=== PATIENT | female | born 1940 | race Caucasian/White ===

== ENCOUNTER 2016-12-08 23:35 | Emergency (ER) | payer MEDICARE, OTHER ==
[~2016-12-08] VITALS: Ht 177.8 cm; Wt 63.6 kg
[~2016-12-08 23:35] MED LIST: AVELOX400 MG OR; CYMBALTA60 MG PO; EFFEXOR75 MG OR; LORTAB5 PO; LYRICA75 MG OR; PANCOF EXP OR; PRILOSEC20 MG OR; PROPANOLOL OR; PROVIGIL100 MG OR; ULTRAM50 M1 PO; VITORIN; VYTORIN 10/401 TAB OR
[2016-12-09] LABS: HEMATOCRIT 35.1 % (37.0-47.0); HEMOGLOBIN 11.8 g/dl (12.0-16.0); IMMATURE GRANULOCYTES 1.1 % (0.0-1.0); MEAN CELL VOLUME 89.8 fL CALC (80.0-100.0); MEAN CORPUSCULAR HGB 30.2 pG CALC (26.0-32.0); MEAN CORPUSCULAR HGB CONC 33.6 g/L CALC (32.0-36.0); NEUT# 3.85 thou/uL (2.00-7.15); RED BLOOD COUNT 3.91 mill/uL (4.20-5.60); RED CELL DISTRI WIDTH 14.3 % (11.5-15.5)
[2016-12-09] MEDS ORDERED: BRILINTA90 MG PO
--- NOTE | 2016-12-09 | NUR ---
PATIENT RECEIVED INTUBATED WITH TUBE # 7 AT 22@ THE LIPS. PLACED ON VENTILATOR WITH AC MODE 16, 500, 100% + 5 PEEP. WILL CONTINUE TO MONITOR. ABG RESULT AVAILABLE.
[2016-12-09] MEDS ORDERED: CYANOCOBALAM1000 MC1 IM (00:01)
[2016-12-09] MEDS ORDERED: TOPAMAX50 MG PO (00:01)
[2016-12-09] MEDS ORDERED: MONTELUKAST SOD10 MG PO (00:01)
[2016-12-09] MEDS ORDERED: PROAIR HFA IN (00:02)
[2016-12-09] MEDS ORDERED: METO100T50 PO (00:02)
[2016-12-09] MEDS ORDERED: FIORICET 50-3001 CAP PO (00:03)
[2016-12-09 00:46] LABS: ALBUMIN 3.5 g/dL (3.2-5.0); ALKALINE PHOSPHATASE 68 u/l (38-126); ANION GAP 17 (6-22 (CALC)); BILIRUBIN, TOTAL 0.4 mg/dL (0.0-1.4); BUN 13 mg/dL (8-23); BUN/CREATININE RATIO 10 (12-20 (CALC)); CALCIUM 8.1 mg/dL (8.4-10.2); CARBON DIOXIDE 16 mmol/l (22-30); CHLORIDE 104 mmol/l (95-108); CREATININE 1.3 mg/dL (0.5-1.0); GFR 40 ML/MIN (>=60 (CALC)); GFR FOR AFR.AMER. 48 ML/MIN (>=60 (CALC)); GLUCOSE 110 mg/dL (82-115); LIPASE 117 u/l (23-300); POTASSIUM 3.8 mmol/l (3.5-5.1); SGOT/AST 29 u/l (9-36); SGPT/ALT 32 u/l (11-66); SODIUM 134 mmol/l (137-146); TOTAL PROTEIN 6.3 g/dL (6.3-8.2)
[2016-12-09 00:55] LABS: URINE BLOOD DIPSTICK NEGATIVE (NEGATIVE); URINE CLARITY TURBID; URINE COLOR YELLOW; URINE GLUCOSE - DIPSTICK NEGATIVE (NEGATIVE); URINE KETONE TRACE mg/dL (NEGATIVE); URINE LEUK ESTERASE NEGATIVE (NEGATIVE); URINE NITRITE - DIPSTICK NEGATIVE (Negative); URINE PROTEIN - DIPSTICK 30 mg/dL (NEG-TRACE); URINE SPECIFIC GRAVITY >=1.030; URINE UROBILINOGEN - DIPSTICK 0.2 E.U./dL (0.2)
[2016-12-09 00:57] LABS: MYOGLOBIN 93 ng/mL (0 - 62)
[2016-12-09 00:59] LABS: URINE BILIRUBIN - DIPSTICK SMALL (NEGATIVE)
[2016-12-09 01:02] LABS: COCAINE NEGATIVE (NEGATIVE); TETRAHYDROCANNABIONOL NEGATIVE (NEGATIVE)
[2016-12-09 01:03] LABS: BARBITURATES POSITIVE (NEGATIVE); METHADONE NEGATIVE (NEGATIVE); OXCYCODONE NEGATIVE (NEGATIVE); TRICYLIC ANTIDEPRESSANTS NEGATIVE (NEGATIVE)
[2016-12-09 01:08] LABS: URINE BACTERIA FEW hpf; URINE MUCUS MODERATE hpf (NONE-FEW); URINE RBC 0-2 RBC/hpf (0-5); URINE SQUAMOUS EPITHELIAL CELL MANY EPI/hpf (0-FEW)
[2016-12-09 01:09] LABS: URINE FINE GRAN CAST FEW lpf; URINE HYALINE CAST FEW lpf (NONE-RARE)
[2016-12-09 04:05] VITALS: BP 100/51
--- NOTE | 2016-12-11 13:17 | NUR ---
CALLED BLOOD CULTURE GROWING STAPH HOMINIS IN 1 OF 2 SETS TO VAMSHI CULLEN AT [facility]. FAXED BOTH CULTURES TO [phone].
== END 2016-12-09 04:05 | disposition short-term general hospital (02) ==
LOC: ED 23:35
PROVIDERS: Emergency Medicine
PROC: 5A1935Z Respiratory Ventilation, Less than 24 Consecutive Hours (ICD-10-PCS; principal; 2016-12-08)
PROC: 0T9B70Z Drainage of Bladder with Drainage Device, Via Natural or Artificial Opening (ICD-10-PCS; 2016-12-08)
DX: J96.00 Acute respiratory failure, unspecified whether with hypoxia or hypercapnia (principal); J69.0 Pneumonitis due to inhalation of food and vomit; E87.2 Acidosis; I95.9 Hypotension, unspecified; M32.9 Systemic lupus erythematosus, unspecified; F10.10 Alcohol abuse, uncomplicated; R68.0 Hypothermia, not associated with low environmental temperature; R41.82 Altered mental status, unspecified; F17.210 Nicotine dependence, cigarettes, uncomplicated; I25.2 Old myocardial infarction; Z95.5 Presence of coronary angioplasty implant and graft

== ENCOUNTER 2020-09-27 07:44 | Emergency (ER) | payer MEDICARE, OTHER ==
[~2020-09-27] VITALS: Ht 177.8 cm; Wt 75.0 kg
[~2020-09-27 07:44] MED LIST changes: +BRILINTA90 MG PO; +CYANOCOBALAM1000 MC1 IM; +FIORICET 50-3001 CAP PO; +METO100T50 PO; +MONTELUKAST SOD10 MG PO; +PROAIR HFA IN; +TOPAMAX50 MG PO
[2020-09-27] MEDS ORDERED: DONEPEZIL10 MG PO (08:25)
[2020-09-27] MEDS ORDERED: ASPIRIN81 MG PO (08:25)
[2020-09-27] MEDS ORDERED: ESCITALOPRAM OX10 MG PO (08:26)
[2020-09-27] MEDS ORDERED: LIPITOR20 M1 PO (08:26)
[2020-09-27] MEDS ORDERED: OXYBUTYNIN CHLO10 MG PO (08:27)
[2020-09-27] MEDS ORDERED: MEMANTINE HYDROC5 MG PO (08:28)
[2020-09-27] MEDS ORDERED: BUPROPION150 M4 PO (08:29)
[2020-09-27] MEDS ORDERED: FERRAPLUS 90 PO (08:30)
[2020-09-27] MEDS ORDERED: D3 ADULT1000 UNIT PO (08:31)
[2020-09-27] MEDS ORDERED: HYDROCO/APAP1 TA9 PO (09:46)
[2020-09-27] MEDS ORDERED: KEFLEX500 MG PO (09:46)
[2020-09-27 10:15] VITALS: BP 129/66
== END 2020-09-27 10:15 | disposition home or self-care (01) ==
LOC: ED 07:44
DX: S80.12XA Contusion of left lower leg, initial encounter (principal); L03.116 Cellulitis of left lower limb; S73.102A Unspecified sprain of left hip, initial encounter; F32.9 Major depressive disorder, single episode, unspecified; I25.2 Old myocardial infarction; F17.210 Nicotine dependence, cigarettes, uncomplicated; W22.8XXA Striking against or struck by other objects, initial encounter

== ENCOUNTER 2020-10-28 09:06 | Emergency (ER) | payer MEDICARE, OTHER ==
[~2020-10-28] VITALS: Ht 177.8 cm; Wt 75.0 kg
[~2020-10-28 09:06] MED LIST changes: +ASPIRIN81 MG PO; +BUPROPION150 M4 PO; +D3 ADULT1000 UNIT PO; +DONEPEZIL10 MG PO; +ESCITALOPRAM OX10 MG PO; +FERRAPLUS 90 PO; +HYDROCO/APAP1 TA9 PO; +KEFLEX500 MG PO; +LIPITOR20 M1 PO; +MEMANTINE HYDROC5 MG PO; +OXYBUTYNIN CHLO10 MG PO
[2020-10-28 09:16] VITALS: BP 132/67
[2020-10-28] MEDS ORDERED: KEFLEX500 M1 PO (11:30)
== END 2020-10-28 12:20 | disposition home or self-care (01) ==
LOC: ED 09:06
PROC: 0HQFXZZ Repair Right Hand Skin, External Approach (ICD-10-PCS; principal; 2020-10-28)
DX: S61.212A Laceration without foreign body of right middle finger without damage to nail, initial encounter (principal); F32.9 Major depressive disorder, single episode, unspecified; I25.2 Old myocardial infarction; F17.210 Nicotine dependence, cigarettes, uncomplicated; W20.8XXA Other cause of strike by thrown, projected or falling object, initial encounter; Y93.89 Activity, other specified; Y92.007 Garden or yard of unspecified non-institutional (private) residence as the place of occurrence of the external cause

== ENCOUNTER 2020-10-30 11:34 | Emergency (ER) | payer MEDICARE, OTHER ==
[~2020-10-30] VITALS: Ht 177.8 cm; Wt 71.0 kg
[~2020-10-30 11:34] MED LIST changes: +KEFLEX500 M1 PO
[2020-10-30 12:42] VITALS: BP 131/84
== END 2020-10-30 12:42 | disposition home or self-care (01) ==
LOC: ED 11:34
DX: S61.212D Laceration without foreign body of right middle finger without damage to nail, subsequent encounter (principal); F17.210 Nicotine dependence, cigarettes, uncomplicated; X58.XXXD Exposure to other specified factors, subsequent encounter

== ENCOUNTER 2021-08-06 22:58 | Observation (INO) | payer MEDICARE, OTHER ==
[~2021-08-06] VITALS: Ht 182.9 cm; Wt 67.5 kg
--- NOTE | 2021-08-06 23:00 | NUR ---
PT ARRIVED VIA EMS, PT PLACED IN ROOM 9 FOR TRIAGE AND WORK UP
[2021-08-06 23:35] LABS: HEMATOCRIT 38.8 % (37.0-47.0); HEMOGLOBIN 12.8 g/dl (12.0-16.0); IMMATURE GRANULOCYTES 0.4 % (0.0-5.0); MEAN CELL VOLUME 92.6 fL CALC (80.0-100.0); MEAN CORPUSCULAR HGB 30.5 pG CALC (26.0-32.0); NEUT# 3.8 thou/uL (2.00-7.15); RED BLOOD COUNT 4.19 mill/uL (4.20-5.60); RED CELL DISTRI WIDTH 14.3 % (11.5-15.5)
[2021-08-06] MEDS ORDERED: PEPCID20 MG PO (23:52)
[2021-08-06] MEDS ORDERED: LIPITOR40 M1 PO (23:53)
[2021-08-06] MEDS ORDERED: ARICEPT10 MG PO (23:54)
[2021-08-06] MEDS ORDERED: DITROPAN XL5 MG PO (23:54)
[2021-08-06] MEDS ORDERED: BUSPIRONE5 MG PO (23:55)
[2021-08-06] MEDS ORDERED: NAMENDA1 TAB PO (23:55)
[2021-08-06] MEDS ORDERED: WELLBUTRIN150 M2 PO (23:56)
[2021-08-06] MEDS ORDERED: GABAPENTIN300 M2 PO (23:57)
[2021-08-07 00:12] LABS: ALBUMIN 3.8 g/dL (3.2-5.0); ANION GAP 9 (6-22 (CALC)); BILIRUBIN, TOTAL 0.5 mg/dL (0.0-1.4); BUN 23 mg/dL (8-23); BUN/CREATININE RATIO 16 (12-20 (CALC)); CARBON DIOXIDE 30 mmol/l (22-30); CHLORIDE 103 mmol/l (95-108); CREATININE 1.4 mg/dL (0.5-1.0); GFR 36 ML/MIN (>=60 (CALC)); GFR FOR AFR.AMER. 43 ML/MIN (>=60 (CALC)); POTASSIUM 4.2 mmol/l (3.5-5.1); SGOT/AST 29 u/l (9-36); SODIUM 138 mmol/l (137-146); TOTAL PROTEIN 6.9 g/dL (6.3-8.2)
[2021-08-07 00:13] LABS: ALKALINE PHOSPHATASE 101 u/l (38-126)
[2021-08-07 00:24] LABS: MYOGLOBIN 109 ng/mL (0 - 62)
--- NOTE | 2021-08-07 01:57 | NUR ---
REPORT RECEIVED FROM Vivek SANCHEZ RN
[2021-08-07 02:15] VITALS: BP 119/61
--- NOTE | 2021-08-07 02:17 | NUR ---
PT TRANSPORTED TO [facility] VIA WHEELCHAIR ALL BELONGINGS SENT WITH PATIENT
--- NOTE | 2021-08-07 02:20 | NUR ---
PT ARRIVED VIA WHEELCHAIR ACCOMPANIED BY Eriberto LOCKWOOD LPN.
[2021-08-07 04:00] VITALS: BP 97/54
--- NOTE | 2021-08-07 05:08 | NUR ---
PT STATES SHE WOULD ONLY LIKE TO SLEEP, NO OTHER NEEDS VOICED OTHERWISE, CALL LIGHT AND BEDSIDE TABLE WITHIN REACH.
--- NOTE | 2021-08-07 05:09 | NUR ---
ALERT AND ORITNETED X3. CLEAR LUNG SOUNDS, NORMAL HEART SOUNDS. SR ON TELEMETRY. SKIN DRY AND INTACT. DENIES ANY CURRENT CHEST PAIN. STATES SHE ONLY WANTS TO SLEEP.LAST REPORTED BOWEL MOVEMENT 08/06/21, ACTIVE BOWEL SOUNDS.#20 IN THE RAC INF PER EMAR.PLAN OF CARE REVIEWED, PT VERBALISES UNDERSTANDING. CALL LIGHT AND BEDSIDE TABLE WITHIN REACH.
[2021-08-07 07:30] VITALS: BP 102/63
--- NOTE | 2021-08-07 07:30 | NUR ---
PATIENT LAYING IN BED AT THIS TIME ALERT AND ORIENTED PATIENT DEINES ANY PIAN AND STATED "I HAVE NOT HAD ANY CHEST PAIN SINCE I GOT HERE". ONLINE COMMUNICATIONS SPECIALIST DONE SEE INTERVENTIONS. LUNG BRADLEY ARE CLEAR TELE MONITOR IN PLACE AND BEING MONITORED BY ED. SIDERAILS ARE UP CALL LIGHT WITH IN REACH. WILL CONTINUE TO MONITOR.
[2021-08-07 08:58] LABS: CHOLESTEROL HDL RATIO 2.9 (<4.4 (CALC))
--- NOTE | 2021-08-07 10:00 | NUR ---
DR. ALDANA AND RAMESH CHAUDHARI ROUNDING AT THIS TIME.
[2021-08-07 11:03] VITALS: BP 102/63
--- NOTE | 2021-08-07 11:30 | NUR ---
PATIENT RESTING IN BED AT THIS TIME VISITOR AT BEDSIDE. PATIENT DENIES ANY PAIN AND OR CHEST PAIN. SIDERAILS ARE UP X 2 CALL LIGHT WITHIN REACH . TELE MONITOR ON AND BEING MONITORED BY ED.
[2021-08-07] MEDS ORDERED: ASPIRIN 81 LOW81 MG PO (15:41)
--- NOTE | 2021-08-07 15:52 | NUR ---
Discharge instructions given. Patient verbalizes understanding of same. Discharged in stable condition via Wheelchair to Home with family. All belongings sent with pt.
== END 2021-08-07 15:55 | disposition home or self-care (01) ==
LOC: ED 22:58 → ED-I 08-07 00:42 → ED 08-07 00:52 → MS2 08-07 00:53
PROVIDERS: Emergency Medicine; Nurse Practitioner; ADMIT Hospitalist; ATTEND Hospitalist
DX: R07.9 Chest pain, unspecified (principal); I95.9 Hypotension, unspecified; I12.9 Hypertensive chronic kidney disease with stage 1 through stage 4 chronic kidney disease, or unspecified chronic kidney disease; N18.30 Chronic kidney disease, stage 3 unspecified; F41.9 Anxiety disorder, unspecified; F32.A Depression, unspecified; F03.90 Unspecified dementia, unspecified severity, without behavioral disturbance, psychotic disturbance, mood disturbance, and anxiety; M79.7 Fibromyalgia; G62.9 Polyneuropathy, unspecified; I25.2 Old myocardial infarction; F17.200 Nicotine dependence, unspecified, uncomplicated; T39.016A Underdosing of aspirin, initial encounter; Z91.128 Patient's intentional underdosing of medication regimen for other reason; Z95.5 Presence of coronary angioplasty implant and graft; Z20.822 Contact with and (suspected) exposure to COVID-19

== ENCOUNTER 2022-03-07 16:45 | Emergency (ER) | payer MEDICARE, OTHER ==
[2022-03-07] VITALS (10 sets, daily range): BP systolic 98–144; BP diastolic 53–73
[~2022-03-07] VITALS: Ht 182.9 cm; Wt 68.3 kg
[~2022-03-07 16:45] MED LIST changes: +ARICEPT10 MG PO; +ASPIRIN 81 LOW81 MG PO; +BUSPIRONE5 MG PO; +DITROPAN XL5 MG PO; +GABAPENTIN300 M2 PO; +LIPITOR40 M1 PO; +NAMENDA1 TAB PO; +PEPCID20 MG PO; +WELLBUTRIN150 M2 PO
[2022-03-07] MEDS ORDERED: PREDNISONE20 MG PO (19:05)
[2022-03-07] MEDS ORDERED: PERCOCET 5/321 COMBO PO (19:05)
[2022-03-08] MEDS ORDERED: PERCOCET 5/321 COMBO PO (12:39)
== END 2022-03-07 19:16 | disposition home or self-care (01) ==
LOC: ED 16:45
DX: M54.42 Lumbago with sciatica, left side (principal); I25.10 Atherosclerotic heart disease of native coronary artery without angina pectoris; F41.9 Anxiety disorder, unspecified; F32.A Depression, unspecified; G62.9 Polyneuropathy, unspecified; F17.210 Nicotine dependence, cigarettes, uncomplicated

== ENCOUNTER 2023-04-15 07:08 | Day surgery (SDC) | payer MEDICARE, OTHER ==
[~2023-04-15] VITALS: Ht 177.8 cm; Wt 68.9 kg
[~2023-04-15 07:08] MED LIST changes: +LYRICA75 MG PO; +PERCOCET 5/321 COMBO PO; +PREDNISONE20 MG PO; +PROTONIX40 M2 PO; +ROPINIROLE5 MG PO; +TOPROL XL25 M1 PO
[2023-04-15 09:26] VITALS: BP 116/62
== END 2023-04-15 09:52 | disposition home or self-care (01) ==
LOC: ORM 07:08 → ENDO 07:08 → ORM 08:40 → ENDO 09:52 → ORM 12:10
PROVIDERS: ATTEND Internal Medicine Gastroenterology
PROC: 0DJD8ZZ Inspection of Lower Intestinal Tract, Via Natural or Artificial Opening Endoscopic (ICD-10-PCS; principal; 2023-04-15)
PROC: 0DB98ZX Excision of Duodenum, Via Natural or Artificial Opening Endoscopic, Diagnostic (ICD-10-PCS; 2023-04-15)
PROC: 0DB78ZX Excision of Stomach, Pylorus, Via Natural or Artificial Opening Endoscopic, Diagnostic (ICD-10-PCS; 2023-04-15)
PROC: 0DB58ZX Excision of Esophagus, Via Natural or Artificial Opening Endoscopic, Diagnostic (ICD-10-PCS; 2023-04-15)
DX: D50.9 Iron deficiency anemia, unspecified (principal); K21.9 Gastro-esophageal reflux disease without esophagitis; K44.9 Diaphragmatic hernia without obstruction or gangrene; K22.89 Other specified disease of esophagus; K29.70 Gastritis, unspecified, without bleeding; K64.8 Other hemorrhoids; K31.7 Polyp of stomach and duodenum; I12.9 Hypertensive chronic kidney disease with stage 1 through stage 4 chronic kidney disease, or unspecified chronic kidney disease; N18.2 Chronic kidney disease, stage 2 (mild); J44.9 Chronic obstructive pulmonary disease, unspecified; M32.9 Systemic lupus erythematosus, unspecified; E78.5 Hyperlipidemia, unspecified; F32.A Depression, unspecified; Z79.899 Other long term (current) drug therapy

== ENCOUNTER 2023-05-13 23:08 | Emergency (ER) | payer MEDICARE, OTHER ==
[~2023-05-13] VITALS: Ht 177.8 cm; Wt 69.0 kg
[2023-05-14] MEDS ORDERED: ULTRAM50 MG PO (00:41)
[2023-05-14 01:05] VITALS: BP 128/70
== END 2023-05-14 01:05 | disposition home or self-care (01) ==
LOC: ED 23:08
DX: S83.92XA Sprain of unspecified site of left knee, initial encounter (principal); S93.402A Sprain of unspecified ligament of left ankle, initial encounter; S73.102A Unspecified sprain of left hip, initial encounter; I25.10 Atherosclerotic heart disease of native coronary artery without angina pectoris; F41.9 Anxiety disorder, unspecified; M79.7 Fibromyalgia; G62.9 Polyneuropathy, unspecified; F32.A Depression, unspecified; F17.200 Nicotine dependence, unspecified, uncomplicated; W01.198A Fall on same level from slipping, tripping and stumbling with subsequent striking against other object, initial encounter; Y93.H9 Activity, other involving exterior property and land maintenance, building and construction; Y92.007 Garden or yard of unspecified non-institutional (private) residence as the place of occurrence of the external cause